=== PATIENT | female | born 2000 | race African-American/Black ===

== ENCOUNTER 2020-12-24 13:49 | Emergency (ER) | payer SELFPAY | END 2020-12-24 16:32 | disposition left against medical advice (07) | LOC: ERS 13:49 | DX: Z53.21 Procedure and treatment not carried out due to patient leaving prior to being seen by health care provider (principal) | CPT/HCPCS: 36415; 84702 ==

== ENCOUNTER 2025-03-11 16:15 | Emergency (ER) | payer OTHER ==
[2025-03-11 17:35] LABS: Pregnancy Test - Urine (BHCG) Negative (Negative); Pregu Control Background? CLEAR/WHITE (CLR/WHITE); Pregu Control Bar Appear? YES (CONTROL BAR)
[2025-03-11 17:37] LABS: CAUTI Indications for Culture Pelvic or flank pain; Glucose, Urine (Dipstick) Normal (Negative); Leukocyte 500 Leu/uL (Negative); Protein, Urine (Dipstick) 30 mg/dL (Neg-Trace); Specific Gravity, Urine 1.016 (1.002-1.036); WBC/HPF Greater than 50 HPF (0-3)
[2025-03-11] MEDS ORDERED: Lidocaine 1% PF 5 ML VIAL ONE (17:42)
[2025-03-11] MEDS ORDERED: cefTRIAXone (ROCEPHIN) 500 MG VIAL ONE (17:42)
[2025-03-11 17:57] LABS: Bacteria/HPF 2+ HPF (None Seen); Yeast-Budding 1+ HPF (None Seen)
[2025-03-11 17:58] LABS: Urine Culture Reflex Yes Yes
[2025-03-11] MEDS ORDERED: metroNIDAZOLE 500 MG TAB ONE (18:13)
[2025-03-11] MEDS ORDERED: Fluconazole 100 MG TAB ONE (18:14)
[2025-03-11] MEDS ORDERED: Ketorolac Tromethamine 30 MG (1 mL) VIAL ONE (18:22)
[2025-03-12 20:05] LABS: Chlamydia by PCR, Vaginal Swab Not Detected (NotDetected); GC by PCR, Vaginal Swab Not Detected (NotDetected); Tric.vaginalis PCR,Vaginal Sw Not Detected (NotDetected)
== END 2025-03-11 18:29 | disposition home or self-care (01) ==
LOC: ERS 16:15
DX: N39.0 Urinary tract infection, site not specified (principal); Z11.3 Encounter for screening for infections with a predominantly sexual mode of transmission; F17.290 Nicotine dependence, other tobacco product, uncomplicated
CPT/HCPCS: 81001; 81025; 87086; 87480; 87491; 87510; 87591; 87660; 87661; 96372; 99283; J0696; J1885